=== PATIENT | female | born 1950 | race Caucasian/White ===

== ENCOUNTER 2017-08-09 12:29 | Emergency (ER) | payer BC, OTHER, MEDICARE | END 2017-08-09 14:30 | disposition home or self-care (01) | LOC: FTE 12:29 | DX: E11.628 Type 2 diabetes mellitus with other skin complications (principal); I10 Essential (primary) hypertension; I25.10 Atherosclerotic heart disease of native coronary artery without angina pectoris; R23.8 Other skin changes; E66.01 Morbid (severe) obesity due to excess calories; L97.529 Non-pressure chronic ulcer of other part of left foot with unspecified severity; Z79.82 Long term (current) use of aspirin; Z79.4 Long term (current) use of insulin | CPT/HCPCS: 10140; 99284-25 ==

== ENCOUNTER 2017-08-21 09:57 | Emergency (ER) | payer BC, OTHER ==
[2017-08-21] MEDS: ONDANSETRON 4 MG INJ IV ×2 (11:25→16:15)
[2017-08-21] MEDS: SOD CHLORIDE 0.9% 1,000 ML IV (11:25)
[2017-08-21] MEDS: morphine 4 MG/ML VIAL IV ×2 (11:25→15:57)
[2017-08-21 11:30] LABS: ADD MAN DIFF? NO
[2017-08-21 11:32] LABS: BASOPHILS % 0.3 % (0.0-2.0); HEMATOCRIT 38.2 % (37.0-47.0); HEMOGLOBIN 12.4 g/dl (12.0-16.0); LYMPHOCYTES # 2.1 10^3/ul (0.8-2.9); LYMPHOCYTES % 23.4 % (15.0-51.0); MEAN CORPUSCULAR HEMOGLOBIN 28.3 pg (29.0-33.0); MEAN CORPUSCULAR HGB CONC 32.5 g/dl (32.0-37.0); MEAN CORPUSCULAR VOLUME 87.2 fl (82.0-101.0); MEAN PLATELET VOLUME 10.9 fl (7.4-10.4); MONOCYTE # 0.5 10^3/ul (0.3-0.9); MONOCYTES % 5.7 % (0.0-11.0); NEUTROPHIL # 6.3 10^3/ul (1.6-7.5); NEUTROPHILS % 70.2 % (39.0-77.0); PLATELET COUNT 266 10^3/UL (140-415); RED BLOOD COUNT 4.38 10^6/ul (4.20-5.40); RED CELL DISTRIBUTION WIDTH 14.3 % (11.5-14.5)
[2017-08-21 11:56] LABS: INR 0.93; PROTIME 12.5 Sec (11.9-14.9)
[2017-08-21 11:58] LABS: ALANINE AMINOTRANSFERASE 29 IU/L (13-69); ALBUMIN 3.8 g/dl (3.3-4.9); ALBUMIN/GLOBULIN RATIO 1.26; ALKALINE PHOSPHATASE 119 IU/L (42-121); ANION GAP 15 (8-16); ASPARTATE AMINO TRANSFERASE 12 IU/L (15-46); BILIRUBIN,INDIRECT 0.1 mg/dl (0-1.1); BILIRUBIN,TOTAL 0.1 mg/dl (0.2-1.3); BLOOD UREA NITROGEN 19 mg/dl (7-20); CALCIUM 8.7 mg/dl (8.4-10.2); CARBON DIOXIDE 30 mmol/L (21-31); CHLORIDE 100 mmol/L (97-110); CREATININE 0.89 mg/dl (0.44-1.00); GLUCOSE 164 mg/dl (70-220); PARTIAL THROMBOPLASTIN TIME 27.2 Sec (25.0-35.0); SODIUM 140 mmol/L (135-144); TOTAL PROTEIN 6.8 g/dl (6.1-8.1)
[2017-08-21 12:02] LABS: POTASSIUM 5.2 mmol/L (3.5-5.1)
[2017-08-21 12:26] LABS: TROPONIN-I < 0.012 ng/ml (0.00-0.12)
[2017-08-21 13:27] LABS: ADD UMIC NO; UR ASCORBIC ACID NEGATIVE (NEGATIVE); UR BILIRUBIN (Dip) NEGATIVE (NEGATIVE); UR BLOOD (Dip) NEGATIVE (NEGATIVE); UR CLARITY CLEAR (CLEAR); UR COLOR YELLOW (YELLOW); UR GLUCOSE (Dip) NEGATIVE (NEGATIVE); UR KETONES (Dip) NEGATIVE (NEGATIVE); UR LEUKOCYTE ESTERASE (Dip) NEGATIVE Leu/ul (NEGATIVE); UR NITRITE (Dip) NEGATIVE (NEGATIVE); UR SPECIFIC GRAVITY (Dip) 1.014 (1.003-1.030); UR TOTAL PROTEIN (Dip) NEGATIVE (NEGATIVE); UR UROBILINOGEN (Dip) NEGATIVE (NEGATIVE)
== END 2017-08-21 18:20 | disposition home or self-care (01) ==
LOC: E/R 09:57
DX: R35.0 Frequency of micturition (principal); E11.9 Type 2 diabetes mellitus without complications; I10 Essential (primary) hypertension; I25.10 Atherosclerotic heart disease of native coronary artery without angina pectoris; R06.02 Shortness of breath; Z79.4 Long term (current) use of insulin; Z79.82 Long term (current) use of aspirin
CPT/HCPCS: 73630; 73630-LT; 80053; 81003; 84484; 85025; 85610; 85730; 87086; 93005; 96374; 96375; 96376; 99285-25

== ENCOUNTER 2017-08-24 12:17 | Emergency (ER) | payer BC, OTHER ==
[2017-08-24] MEDS: ACETAMINOPHEN 500 MG TAB PO ×2 (17:38→20:02)
[2017-08-24] MEDS: SOD CHLORIDE 0.9% 1,000 ML IV (17:40)
[2017-08-24 17:52] LABS: ADD MAN DIFF? NO
[2017-08-24] MEDS: CEFTRIAXONE 1 GM/50 ML (PMX) 50 ML IVPB (17:53)
[2017-08-24 18:01] LABS: WHITE BLOOD COUNT 14.3 10^3/ul (4.8-10.8)
[2017-08-24 18:01] LABS: BASOPHIL # 0.1 10^3/ul (0.0-0.1); BASOPHILS % 0.3 % (0.0-2.0); HEMATOCRIT 37.8 % (37.0-47.0); HEMOGLOBIN 12.2 g/dl (12.0-16.0); LYMPHOCYTES # 2.7 10^3/ul (0.8-2.9); LYMPHOCYTES % 19.2 % (15.0-51.0); MEAN CORPUSCULAR HEMOGLOBIN 28.6 pg (29.0-33.0); MEAN CORPUSCULAR HGB CONC 32.3 g/dl (32.0-37.0); MEAN CORPUSCULAR VOLUME 88.7 fl (82.0-101.0); MEAN PLATELET VOLUME 11.1 fl (7.4-10.4); MONOCYTE # 1.4 10^3/ul (0.3-0.9); MONOCYTES % 9.7 % (0.0-11.0); NEUTROPHIL # 10.1 10^3/ul (1.6-7.5); NEUTROPHILS % 70.4 % (39.0-77.0); PLATELET COUNT 248 10^3/UL (140-415); RED BLOOD COUNT 4.26 10^6/ul (4.20-5.40); RED CELL DISTRIBUTION WIDTH 14.6 % (11.5-14.5)
[2017-08-24 18:22] LABS: ALANINE AMINOTRANSFERASE 30 IU/L (13-69); ALBUMIN/GLOBULIN RATIO 1.21; ALKALINE PHOSPHATASE 125 IU/L (42-121); ANION GAP 17 (8-16); ASPARTATE AMINO TRANSFERASE 11 IU/L (15-46); BILIRUBIN,INDIRECT 0.3 mg/dl (0-1.1); BILIRUBIN,TOTAL 0.3 mg/dl (0.2-1.3); BLOOD UREA NITROGEN 18 mg/dl (7-20); CALCIUM 8.4 mg/dl (8.4-10.2); CARBON DIOXIDE 29 mmol/L (21-31); CHLORIDE 97 mmol/L (97-110); CREATININE 0.95 mg/dl (0.44-1.00); GLUCOSE 94 mg/dl (70-220); POTASSIUM 4.1 mmol/L (3.5-5.1); SODIUM 139 mmol/L (135-144); TOTAL PROTEIN 7.3 g/dl (6.1-8.1)
[2017-08-24 18:23] LABS: LACTIC ACID 1.4 mmol/L (0.5-2.0)
[2017-08-24 18:31] LABS: B-TYPE NATRIURETIC PEPTIDE 1370 PG/ML (0-125)
[2017-08-24 19:06] LABS: TROPONIN-I < 0.012 ng/ml (0.00-0.12)
[2017-08-24] MEDS: AZITHROMYCIN 500MG/NS (PMX) 250 ML IV (19:33)
[2017-08-24] MEDS: ALBUTEROL 0.083% (NEB) 2.5 MG/3 ML AMP NEB (20:02)
== END 2017-08-25 08:03 | disposition home or self-care (01) ==
LOC: E/R 08-25 08:03
DX: J40 Bronchitis, not specified as acute or chronic (principal); H10.31 Unspecified acute conjunctivitis, right eye; I10 Essential (primary) hypertension; E11.9 Type 2 diabetes mellitus without complications; I25.10 Atherosclerotic heart disease of native coronary artery without angina pectoris; Z79.01 Long term (current) use of anticoagulants; Z79.4 Long term (current) use of insulin; Z79.82 Long term (current) use of aspirin
CPT/HCPCS: 36415; 71045; 80053; 82962; 83605; 83880; 84484; 85025; 87040; 87400; 93005; 96374; 96375; 99285-25

== ENCOUNTER 2017-08-29 10:37 | Inpatient (IN) | payer BC, OTHER ==
[2017-08-29 11:17] LABS: ADD MAN DIFF? NO
[2017-08-29 11:19] LABS: BASOPHILS % 0.3 % (0.0-2.0); HEMATOCRIT 33.3 % (37.0-47.0); HEMOGLOBIN 11.1 g/dl (12.0-16.0); LYMPHOCYTES # 1.5 10^3/ul (0.8-2.9); LYMPHOCYTES % 12.7 % (15.0-51.0); MEAN CORPUSCULAR HEMOGLOBIN 29.4 pg (29.0-33.0); MEAN CORPUSCULAR HGB CONC 33.3 g/dl (32.0-37.0); MEAN CORPUSCULAR VOLUME 88.3 fl (82.0-101.0); MONOCYTES % 8.4 % (0.0-11.0); NEUTROPHIL # 9.2 10^3/ul (1.6-7.5); NEUTROPHILS % 77.9 % (39.0-77.0); PLATELET COUNT 221 10^3/UL (140-415); RED BLOOD COUNT 3.77 10^6/ul (4.20-5.40); RED CELL DISTRIBUTION WIDTH 14.1 % (11.5-14.5)
[2017-08-29 11:19] LABS: WHITE BLOOD COUNT 11.8 10^3/ul (4.8-10.8)
[2017-08-29] MEDS: IPRATROPIUM (NEB) 0.5 MG/2.5 ML AMP INH (11:23)
[2017-08-29] MEDS: ALBUTEROL 0.5% (NEB) 2.5 MG/0.5 ML AMP INH (11:23)
[2017-08-29 11:44] LABS: ANION GAP 11 (8-16); BLOOD UREA NITROGEN 16 mg/dl (7-20); CALCIUM 8.1 mg/dl (8.4-10.2); CARBON DIOXIDE 29 mmol/L (21-31); CHLORIDE 102 mmol/L (97-110); CREATININE 0.66 mg/dl (0.44-1.00); GLUCOSE 157 mg/dl (70-220); POTASSIUM 3.6 mmol/L (3.5-5.1); SODIUM 138 mmol/L (135-144)
[2017-08-29 11:56] LABS: TROPONIN-I < 0.012 ng/ml (0.00-0.12)
[2017-08-29 13:02] LABS: B-TYPE NATRIURETIC PEPTIDE 1620 PG/ML (0-125)
[2017-08-29] MEDS: FUROSEMIDE 20 MG INJ IV (15:19)
[2017-08-29] MEDS ORDERED: ACETAMINOPHEN 325 MG TAB PO (16:00)
[2017-08-29] MEDS ORDERED: ONDANSETRON 4 MG INJ IV (16:00)
[2017-08-29] MEDS ORDERED: BISACODYL (EC) 5 MG TAB PO (18:30)
[2017-08-29] MEDS ORDERED: ALBUTEROL HFA 8 GM INHALER INH (18:30)
[2017-08-29] MEDS ORDERED: ACETAMINOPHEN 650 MG SUPP PR (18:30)
[2017-08-29] MEDS ORDERED: NA PHOSPHATE/BIPHOS 133 ML ENEMA PR (18:30)
[2017-08-29] MEDS ORDERED: NACL 0.9% 3 ML SYG IV (18:30)
[2017-08-29] MEDS ORDERED: DOCUSATE SODIUM 100 MG CAP PO (18:30)
[2017-08-29 20:15] LABS: CREATINE KINASE 39 IU/L (23-200)
[2017-08-29 20:29] LABS: CK INDEX 1.3
[2017-08-29 20:31] LABS: TROPONIN-I < 0.012 ng/ml (0.00-0.12)
[2017-08-29] MEDS: ATORVASTATIN 40 MG TAB PO (21:53)
[2017-08-29] MEDS: AMITRIPTYLINE 25 MG TAB PO (21:54)
[2017-08-29] MEDS: INSULIN GLARGINE [LANtus] 3 ML PEN SC (21:55)
[2017-08-29] MEDS ORDERED: GLUCOSE GEL 15 GRAM TUBE PO ×2 (23:00)
[2017-08-29] MEDS ORDERED: GLUCOSE GEL 15 GRAM TUBE BUCCAL (23:00)
[2017-08-29] MEDS ORDERED: GLUCAGON 1 MG INJ IM (23:00)
[2017-08-29] MEDS ORDERED: DEXTROSE 50% 50 ML SYRINGE IV ×2 (23:00)
[2017-08-29] MEDS: PREGABALIN 75 MG CAP PO (23:26)
[2017-08-30] MEDS: ACCU-CHEK XX (02:04)
[2017-08-30 03:40] LABS: CREATINE KINASE 31 IU/L (23-200)
[2017-08-30 03:51] LABS: CK INDEX 1.3; CK-MB 0.39 ng/ml (0.0-2.4)
[2017-08-30 04:15] LABS: TROPONIN-I < 0.012 ng/ml (0.00-0.12)
[2017-08-30] MEDS: PANTOPRAZOLE 40 MG INJ IV (05:55)
[2017-08-30] MEDS: BENAZEPRIL 20 MG TAB PO (09:00)
[2017-08-30] MEDS: ENOXAPARIN 40 MG/0.4 ML SYG SC (09:00)
[2017-08-30] MEDS: FLUTICASONE 0.05% 16 GM NAS SPRAY NASAL (09:00)
[2017-08-30] MEDS: PREGABALIN 75 MG CAP PO ×3 (09:00→21:23)
[2017-08-30] MEDS: SOLIFENACIN 5 MG TAB PO ×2 (09:00)
[2017-08-30] MEDS: INSULIN ASPART [NOVOLOG] 3 ML PEN SC ×4 (12:00→21:27)
[2017-08-30] MEDS: morphine 2 MG INJ IV ×2 (12:05→21:50)
[2017-08-30] MEDS: ONDANSETRON 4 MG INJ IV (12:05)
[2017-08-30] MEDS: ASPIRIN 81 MG TAB PO (12:06)
[2017-08-30] MEDS: FUROSEMIDE 40 MG INJ IV (12:06)
[2017-08-30] MEDS: INSULIN GLARGINE [LANtus] 3 ML PEN SC ×2 (14:00→21:26)
[2017-08-30] MEDS: IBUPROFEN 800 MG TAB PO (16:40)
[2017-08-30] MEDS: CEFTRIAXONE 1 GM/50 ML (PMX) 50 ML IVPB (21:23)
[2017-08-30] MEDS: ATORVASTATIN 40 MG TAB PO (21:23)
[2017-08-30] MEDS: AMITRIPTYLINE 25 MG TAB PO (21:49)
[2017-08-31] MEDS: ACCU-CHEK XX (02:34)
[2017-08-31] MEDS: PANTOPRAZOLE 40 MG INJ IV (05:31)
[2017-08-31 05:39] LABS: ADD MAN DIFF? NO
[2017-08-31 05:42] LABS: WHITE BLOOD COUNT 10.9 10^3/ul (4.8-10.8)
[2017-08-31 05:42] LABS: BASOPHIL # 0.1 10^3/ul (0.0-0.1); BASOPHILS % 0.5 % (0.0-2.0); HEMATOCRIT 33.8 % (37.0-47.0); HEMOGLOBIN 12.1 g/dl (12.0-16.0); LYMPHOCYTES # 3.7 10^3/ul (0.8-2.9); LYMPHOCYTES % 34.2 % (15.0-51.0); MEAN CORPUSCULAR HEMOGLOBIN 34.4 pg (29.0-33.0); MEAN CORPUSCULAR HGB CONC 35.8 g/dl (32.0-37.0); MEAN PLATELET VOLUME 10.5 fl (7.4-10.4); MONOCYTES % 9.3 % (0.0-11.0); NEUTROPHILS % 55.1 % (39.0-77.0); PLATELET COUNT 262 10^3/UL (140-415); RED BLOOD COUNT 3.52 10^6/ul (4.20-5.40); RED CELL DISTRIBUTION WIDTH 17.3 % (11.5-14.5)
[2017-08-31 06:05] LABS: ALANINE AMINOTRANSFERASE 42 IU/L (13-69); ALBUMIN 3.1 g/dl (3.3-4.9); ALBUMIN/GLOBULIN RATIO 1.06; ALKALINE PHOSPHATASE 87 IU/L (42-121); ANION GAP 11 (8-16); ASPARTATE AMINO TRANSFERASE 17 IU/L (15-46); BILIRUBIN,INDIRECT 0.3 mg/dl (0-1.1); BILIRUBIN,TOTAL 0.3 mg/dl (0.2-1.3); BLOOD UREA NITROGEN 26 mg/dl (7-20); CALCIUM 8.5 mg/dl (8.4-10.2); CARBON DIOXIDE 37 mmol/L (21-31); CHLORIDE 97 mmol/L (97-110); CREATININE 1.07 mg/dl (0.44-1.00); GLUCOSE 80 mg/dl (70-220); POTASSIUM 3.7 mmol/L (3.5-5.1); SODIUM 141 mmol/L (135-144)
[2017-08-31] MEDS: INSULIN ASPART [NOVOLOG] 3 ML PEN SC ×4 (09:16→21:00)
[2017-08-31] MEDS: ASPIRIN 81 MG TAB PO (09:28)
[2017-08-31] MEDS: FUROSEMIDE 40 MG INJ IV (09:28)
[2017-08-31] MEDS: SOLIFENACIN 5 MG TAB PO (09:31)
[2017-08-31] MEDS: PREGABALIN 75 MG CAP PO ×3 (09:34→21:21)
[2017-08-31] MEDS: FLUTICASONE 0.05% 16 GM NAS SPRAY NASAL (09:34)
[2017-08-31] MEDS: ENOXAPARIN 40 MG/0.4 ML SYG SC (09:47)
[2017-08-31] MEDS: REGADENOSON 0.4 MG/5 ML SYG (11:52)
[2017-08-31] MEDS: BENAZEPRIL 20 MG TAB PO (13:16)
[2017-08-31] MEDS: INSULIN GLARGINE [LANtus] 3 ML PEN SC ×2 (13:23→20:40)
[2017-08-31] MEDS: ACETAMINOPHEN 325 MG TAB PO (14:16)
[2017-08-31] MEDS: HYDROCODONE/APAP (10/325) TAB PO (14:44)
[2017-08-31] MEDS: SOD CHLORIDE 0.9% 250 ML IV (15:54)
[2017-08-31] MEDS: ONDANSETRON 4 MG INJ IV (20:25)
[2017-08-31] MEDS: morphine 2 MG INJ IV (20:29)
[2017-08-31] MEDS: CEFTRIAXONE 1 GM/50 ML (PMX) 50 ML IVPB (21:19)
[2017-08-31] MEDS: ATORVASTATIN 40 MG TAB PO (21:20)
[2017-08-31] MEDS: AMITRIPTYLINE 25 MG TAB PO (21:20)
[2017-09-01] MEDS: ACCU-CHEK XX (01:56)
[2017-09-01] MEDS: PANTOPRAZOLE 40 MG INJ IV (05:57)
[2017-09-01] MEDS: FUROSEMIDE 20 MG INJ IV (05:58)
[2017-09-01] MEDS: morphine 2 MG INJ IV ×2 (07:49→23:19)
[2017-09-01] MEDS: INSULIN ASPART [NOVOLOG] 3 ML PEN SC ×4 (07:51→21:03)
[2017-09-01] MEDS: PREGABALIN 75 MG CAP PO ×3 (09:39→20:56)
[2017-09-01] MEDS: SOLIFENACIN 5 MG TAB PO (09:39)
[2017-09-01] MEDS: ASPIRIN 81 MG TAB PO (09:40)
[2017-09-01] MEDS: BENAZEPRIL 10 MG TAB PO (09:43)
[2017-09-01] MEDS: ENOXAPARIN 40 MG/0.4 ML SYG SC (09:45)
[2017-09-01] MEDS: INSULIN GLARGINE [LANtus] 3 ML PEN SC ×2 (09:46→20:59)
[2017-09-01] MEDS: FLUTICASONE 0.05% 16 GM NAS SPRAY NASAL (09:55)
[2017-09-01] MEDS: HYDROCODONE/APAP (10/325) TAB PO (17:45)
[2017-09-01] MEDS: CEFTRIAXONE 1 GM/50 ML (PMX) 50 ML IVPB (20:55)
[2017-09-01] MEDS: ATORVASTATIN 40 MG TAB PO (20:56)
[2017-09-01] MEDS: AMITRIPTYLINE 25 MG TAB PO (20:56)
[2017-09-01] MEDS: ONDANSETRON 4 MG INJ IV (23:19)
[2017-09-02] MEDS: ZOLPIDEM 5 MG TAB PO (01:01)
[2017-09-02] MEDS: ACCU-CHEK XX (01:38)
[2017-09-02] MEDS: FUROSEMIDE 20 MG INJ IV (05:50)
[2017-09-02] MEDS: PANTOPRAZOLE 40 MG INJ IV (05:50)
[2017-09-02 05:58] LABS: ADD MAN DIFF? NO
[2017-09-02 06:06] LABS: BASOPHILS % 0.3 % (0.0-2.0); HEMOGLOBIN 10.9 g/dl (12.0-16.0); LYMPHOCYTES # 2.9 10^3/ul (0.8-2.9); LYMPHOCYTES % 36.1 % (15.0-51.0); MEAN CORPUSCULAR VOLUME 98.1 fl (82.0-101.0); MEAN PLATELET VOLUME 10.6 fl (7.4-10.4); MONOCYTE # 0.6 10^3/ul (0.3-0.9); MONOCYTES % 7.4 % (0.0-11.0); NEUTROPHIL # 4.4 10^3/ul (1.6-7.5); NEUTROPHILS % 55.6 % (39.0-77.0); PLATELET COUNT 252 10^3/UL (140-415)
[2017-09-02 06:46] LABS: ALANINE AMINOTRANSFERASE 33 IU/L (13-69); ALBUMIN 2.9 g/dl (3.3-4.9); ALBUMIN/GLOBULIN RATIO 0.96; ALKALINE PHOSPHATASE 76 IU/L (42-121); ANION GAP 9 (8-16); ASPARTATE AMINO TRANSFERASE 12 IU/L (15-46); BILIRUBIN,INDIRECT 0.4 mg/dl (0-1.1); BILIRUBIN,TOTAL 0.4 mg/dl (0.2-1.3); BLOOD UREA NITROGEN 23 mg/dl (7-20); CALCIUM 8.2 mg/dl (8.4-10.2); CARBON DIOXIDE 33 mmol/L (21-31); CHLORIDE 98 mmol/L (97-110); CREATININE 0.79 mg/dl (0.44-1.00); GLUCOSE 152 mg/dl (70-220); POTASSIUM 4.4 mmol/L (3.5-5.1); SODIUM 136 mmol/L (135-144); TOTAL PROTEIN 5.9 g/dl (6.1-8.1)
[2017-09-02 06:59] LABS: HEMATOCRIT 25.8 % (37.0-47.0); MEAN CORPUSCULAR HEMOGLOBIN 41.4 pg (29.0-33.0); MEAN CORPUSCULAR HGB CONC 42.2 g/dl (32.0-37.0); POSITIVE DIFF @See below; RED BLOOD COUNT 2.63 10^6/ul (4.20-5.40)
[2017-09-02] MEDS: INSULIN ASPART [NOVOLOG] 3 ML PEN SC ×3 (08:14→17:00)
[2017-09-02] MEDS: SOLIFENACIN 5 MG TAB PO (08:56)
[2017-09-02] MEDS: PREGABALIN 75 MG CAP PO ×3 (08:56→21:38)
[2017-09-02] MEDS: ASPIRIN 81 MG TAB PO (08:56)
[2017-09-02] MEDS: BENAZEPRIL 10 MG TAB PO (08:57)
[2017-09-02] MEDS: FLUTICASONE 0.05% 16 GM NAS SPRAY NASAL (08:58)
[2017-09-02] MEDS: ENOXAPARIN 40 MG/0.4 ML SYG SC (08:59)
[2017-09-02] MEDS: INSULIN GLARGINE [LANtus] 3 ML PEN SC ×2 (09:00→21:50)
[2017-09-02] MEDS: morphine 2 MG INJ IV ×2 (09:59→19:37)
[2017-09-02] MEDS: LINAGLIPTIN 5 MG TABLET PO (14:27)
[2017-09-02] MEDS: Insulin NOVOLOG SS MILD Algorithm (SS with meals and bedtime) SC ×2 (17:02→21:48)
[2017-09-02] MEDS ORDERED: INSULIN ASPART [NOVOLOG] 3 ML PEN SC (17:35)
[2017-09-02] MEDS: AMITRIPTYLINE 25 MG TAB PO (21:38)
[2017-09-02] MEDS: ATORVASTATIN 40 MG TAB PO (21:38)
[2017-09-02] MEDS: CEFTRIAXONE 1 GM/50 ML (PMX) 50 ML IVPB (21:39)
[2017-09-03] MEDS: ACCU-CHEK XX (02:28)
[2017-09-03] MEDS: FUROSEMIDE 20 MG INJ IV (05:51)
[2017-09-03] MEDS: PANTOPRAZOLE (EC) 40 MG TAB PO (05:51)
[2017-09-03 06:13] LABS: ADD MAN DIFF? NO
[2017-09-03 06:40] LABS: ANION GAP 9 (8-16); BLOOD UREA NITROGEN 18 mg/dl (7-20); CALCIUM 8.4 mg/dl (8.4-10.2); CARBON DIOXIDE 35 mmol/L (21-31); CHLORIDE 97 mmol/L (97-110); CREATININE 0.97 mg/dl (0.44-1.00); GLUCOSE 135 mg/dl (70-220); POTASSIUM 4.1 mmol/L (3.5-5.1); SODIUM 137 mmol/L (135-144)
[2017-09-03 07:13] LABS: BASOPHILS % 0.3 % (0.0-2.0); HEMATOCRIT 34.8 % (37.0-47.0); HEMOGLOBIN 11.4 g/dl (12.0-16.0); LYMPHOCYTES # 2.7 10^3/ul (0.8-2.9); LYMPHOCYTES % 28.3 % (15.0-51.0); MEAN CORPUSCULAR HEMOGLOBIN 29.7 pg (29.0-33.0); MEAN CORPUSCULAR HGB CONC 32.8 g/dl (32.0-37.0); MEAN CORPUSCULAR VOLUME 90.6 fl (82.0-101.0); MEAN PLATELET VOLUME 10.4 fl (7.4-10.4); MONOCYTE # 0.7 10^3/ul (0.3-0.9); MONOCYTES % 7.6 % (0.0-11.0); NEUTROPHILS % 63.2 % (39.0-77.0); PLATELET COUNT 248 10^3/UL (140-415); RED BLOOD COUNT 3.84 10^6/ul (4.20-5.40); RED CELL DISTRIBUTION WIDTH 14.6 % (11.5-14.5)
[2017-09-03 07:13] LABS: WHITE BLOOD COUNT 9.5 10^3/ul (4.8-10.8)
[2017-09-03 07:51] LABS: HEMOGLOBIN A1C 7.3 % (0-5.9)
[2017-09-03] MEDS: INSULIN ASPART [NOVOLOG] 3 ML PEN SC ×2 (07:59→12:38)
[2017-09-03] MEDS: Insulin NOVOLOG SS MILD Algorithm (SS with meals and bedtime) SC ×2 (08:01→12:41)
[2017-09-03] MEDS: FLUTICASONE 0.05% 16 GM NAS SPRAY NASAL (09:00)
[2017-09-03] MEDS: HYDROCODONE/APAP (10/325) TAB PO (10:04)
[2017-09-03] MEDS: BENAZEPRIL 10 MG TAB PO (10:05)
[2017-09-03] MEDS: SOLIFENACIN 5 MG TAB PO (10:07)
[2017-09-03] MEDS: LINAGLIPTIN 5 MG TABLET PO (10:08)
[2017-09-03] MEDS: ASPIRIN 81 MG TAB PO (10:08)
[2017-09-03] MEDS: PREGABALIN 75 MG CAP PO (10:08)
[2017-09-03] MEDS: ENOXAPARIN 40 MG/0.4 ML SYG SC (10:13)
[2017-09-03] MEDS: MAGNESIUM HYDROXIDE 30ML CUP PO (12:41)
[2017-09-03] MEDS: morphine 2 MG INJ IV (12:42)
== END 2017-09-03 16:54 | disposition home or self-care (01) | DRG 293 ==
LOC: E/R 10:37 → MS3 15:53
DX: I11.0 Hypertensive heart disease with heart failure (principal); I10 Essential (primary) hypertension; I25.2 Old myocardial infarction; E11.9 Type 2 diabetes mellitus without complications; D64.9 Anemia, unspecified; I50.33 Acute on chronic diastolic (congestive) heart failure; I25.10 Atherosclerotic heart disease of native coronary artery without angina pectoris; J06.9 Acute upper respiratory infection, unspecified; R07.9 Chest pain, unspecified
CPT/HCPCS: 36415; 71045; 78452; 80048; 80053; 82550; 82553; 82962; 83036; 83880; 84484; 85025; 93005; 93017; 93306; 94644; 96372; 96374; 96375; 96376; 99217; 99285-25; J1940

== ENCOUNTER 2017-11-20 15:34 | Emergency (ER) | payer MEDICARE, OTHER ==
[2017-11-20] MEDS: IPRATROPIUM (NEB) 0.5 MG/2.5 ML AMP HHN (16:43)
[2017-11-20] MEDS: ALBUTEROL 0.083% (NEB) 2.5 MG/3 ML AMP HHN (16:43)
[2017-11-20] MEDS: FUROSEMIDE 20 MG INJ IV (16:48)
[2017-11-20] MEDS: morphine 4 MG/ML VIAL IV (16:48)
[2017-11-20 17:19] LABS: ADD UMIC NO; UR ASCORBIC ACID 40 mg/dL (NEGATIVE); UR BILIRUBIN (Dip) NEGATIVE (NEGATIVE); UR BLOOD (Dip) NEGATIVE (NEGATIVE); UR CLARITY CLEAR (CLEAR); UR COLOR YELLOW (YELLOW); UR GLUCOSE (Dip) NEGATIVE (NEGATIVE); UR KETONES (Dip) NEGATIVE (NEGATIVE); UR LEUKOCYTE ESTERASE (Dip) NEGATIVE Leu/ul (NEGATIVE); UR NITRITE (Dip) NEGATIVE (NEGATIVE); UR TOTAL PROTEIN (Dip) NEGATIVE (NEGATIVE); UR UROBILINOGEN (Dip) NEGATIVE (NEGATIVE)
[2017-11-20] MEDS: HYDROmorphONE 0.5 MG/0.5 ML SYG IV ×2 (17:23→19:26)
[2017-11-20] MEDS: HYDROmorphONE 2 MG/ML SYG IV (22:41)
== END 2017-11-20 23:00 | disposition home or self-care (01) ==
LOC: E/R 23:00 → FTE 15:34
DX: M54.31 Sciatica, right side (principal); Z79.4 Long term (current) use of insulin; Z79.82 Long term (current) use of aspirin
CPT/HCPCS: 73510; 73700; 81003; 82962; 94664; 96374; 96375; 96376; 99285-25

== ENCOUNTER 2018-12-05 16:36 | Emergency (ER) | payer MEDICARE, OTHER ==
[2018-12-05] MEDS: ONDANSETRON (ODT) 4 MG TAB ODT (17:12)
[2018-12-05] MEDS: HYDROmorphONE 0.5 MG/0.5 ML SYG IM (17:13)
== END 2018-12-05 22:10 | disposition home or self-care (01) ==
LOC: E/R 16:36
DX: M54.31 Sciatica, right side (principal); I10 Essential (primary) hypertension; E11.9 Type 2 diabetes mellitus without complications; Z79.4 Long term (current) use of insulin; Z79.82 Long term (current) use of aspirin
CPT/HCPCS: 96372; 99284-25

== ENCOUNTER 2019-02-03 11:20 | Observation (INO) | payer MEDICARE, OTHER ==
[2019-02-03 16:06] LABS: ADD MAN DIFF? NO
[2019-02-03 16:11] LABS: WHITE BLOOD COUNT 9.9 10^3/ul (4.8-10.8)
[2019-02-03 16:11] LABS: BASOPHILS % 0.3 % (0.0-2.0); HEMATOCRIT 37.6 % (37.0-47.0); HEMOGLOBIN 12.3 g/dl (12.0-16.0); LYMPHOCYTES # 2.7 10^3/ul (0.8-2.9); LYMPHOCYTES % 27.1 % (15.0-51.0); MEAN CORPUSCULAR HEMOGLOBIN 28.5 pg (29.0-33.0); MEAN CORPUSCULAR HGB CONC 32.7 g/dl (32.0-37.0); MEAN PLATELET VOLUME 11.3 fl (7.4-10.4); MONOCYTE # 0.8 10^3/ul (0.3-0.9); MONOCYTES % 8.1 % (0.0-11.0); NEUTROPHIL # 6.4 10^3/ul (1.6-7.5); NEUTROPHILS % 64.1 % (39.0-77.0); PLATELET COUNT 245 10^3/UL (140-415); RED BLOOD COUNT 4.32 10^6/ul (4.20-5.40); RED CELL DISTRIBUTION WIDTH 13.6 % (11.5-14.5)
[2019-02-03 16:28] LABS: ANION GAP 7 (5-13); BLOOD UREA NITROGEN 18 mg/dl (7-20); CALCIUM 8.6 mg/dl (8.4-10.2); CARBON DIOXIDE 30 mmol/L (21-31); CHLORIDE 101 mmol/L (97-110); CREATININE 0.71 mg/dl (0.44-1.00); Estimated GFR > 60 mL/min (>60); GLUCOSE 206 mg/dl (70-220); POTASSIUM 4.3 mmol/L (3.5-5.1); SODIUM 138 mmol/L (135-144)
[2019-02-03] MEDS: PIPER-TAZO 3.375 GM IV (PMX) 100 ML IVPB (18:04)
[2019-02-03] MEDS ORDERED: ONDANSETRON 4 MG INJ IV (19:00)
[2019-02-03] MEDS ORDERED: ACETAMINOPHEN 325 MG TAB PO (19:00)
[2019-02-03] MEDS ORDERED: NACL 0.9% 3 ML SYG IV (19:00)
[2019-02-03] MEDS ORDERED: PREGABALIN 100 MG CAP PO (19:30)
[2019-02-03] MEDS ORDERED: DEXTROSE 50% 50 ML SYRINGE IV ×2 (20:30)
[2019-02-03] MEDS ORDERED: GLUCAGON 1 MG INJ IM (20:30)
[2019-02-03] MEDS ORDERED: GLUCOSE GEL 15 GRAM TUBE PO ×2 (20:30)
[2019-02-03] MEDS ORDERED: GLUCOSE GEL 15 GRAM TUBE BUCCAL (20:30)
[2019-02-03] MEDS: AMITRIPTYLINE 50 MG TAB PO (21:32)
[2019-02-03] MEDS: ATORVASTATIN 20 MG TAB PO (21:32)
[2019-02-03] MEDS: PREGABALIN 75 MG CAP PO (21:32)
[2019-02-03] MEDS: HEPARIN 5,000 UNIT/1 ML VIAL SC (21:34)
[2019-02-03] MEDS: INSULIN ASPART [NOVOLOG] 3 ML PEN SC (21:35)
[2019-02-03] MEDS: INSULIN GLARGINE [LANTus] (100 UNITS/ML) SYG SC (21:36)
[2019-02-04] MEDS: PIPER-TAZO 3.375 GM IV (PMX) 100 ML IVPB ×3 (00:05→12:57)
[2019-02-04] MEDS: ACCU-CHEK XX (01:56)
[2019-02-04] MEDS ORDERED: PENDING SANTYL ORDER FOR WOUND CARE XX (04:00)
[2019-02-04] MEDS ORDERED: COLLAGENASE 5 GM (UD JAR) TOP (04:30)
[2019-02-04 05:40] LABS: ADD MAN DIFF? NO
[2019-02-04 05:48] LABS: WHITE BLOOD COUNT 8.3 10^3/ul (4.8-10.8)
[2019-02-04 05:48] LABS: BASOPHILS % 0.2 % (0.0-2.0); HEMATOCRIT 37.1 % (37.0-47.0); HEMOGLOBIN 12.2 g/dl (12.0-16.0); LYMPHOCYTES # 1.7 10^3/ul (0.8-2.9); LYMPHOCYTES % 20.4 % (15.0-51.0); MEAN CORPUSCULAR HEMOGLOBIN 28.5 pg (29.0-33.0); MEAN CORPUSCULAR HGB CONC 32.9 g/dl (32.0-37.0); MEAN CORPUSCULAR VOLUME 86.7 fl (82.0-101.0); MEAN PLATELET VOLUME 11.2 fl (7.4-10.4); MONOCYTE # 0.8 10^3/ul (0.3-0.9); MONOCYTES % 9.7 % (0.0-11.0); NEUTROPHIL # 5.7 10^3/ul (1.6-7.5); NEUTROPHILS % 69.2 % (39.0-77.0); PLATELET COUNT 226 10^3/UL (140-415); RED BLOOD COUNT 4.28 10^6/ul (4.20-5.40)
[2019-02-04] MEDS: DIPHENHYDRAMINE 50 MG INJ IV (05:53)
[2019-02-04] MEDS: HEPARIN 5,000 UNIT/1 ML VIAL SC ×2 (05:55→13:04)
[2019-02-04 06:14] LABS: ALANINE AMINOTRANSFERASE 35 IU/L (13-69); ALBUMIN 3.3 g/dl (3.3-4.9); ALBUMIN/GLOBULIN RATIO 1.13; ALKALINE PHOSPHATASE 110 IU/L (42-121); ANION GAP 7 (5-13); ASPARTATE AMINO TRANSFERASE 18 IU/L (15-46); BILIRUBIN,INDIRECT 0.4 mg/dl (0-1.1); BILIRUBIN,TOTAL 0.4 mg/dl (0.2-1.3); BLOOD UREA NITROGEN 16 mg/dl (7-20); CALCIUM 8.6 mg/dl (8.4-10.2); CARBON DIOXIDE 32 mmol/L (21-31); CHLORIDE 101 mmol/L (97-110); CREATININE 0.76 mg/dl (0.44-1.00); Estimated GFR > 60 mL/min (>60); GLUCOSE 186 mg/dl (70-220); MAGNESIUM 1.8 mg/dl (1.7-2.5); PHOSPHORUS 4.7 mg/dl (2.5-4.9); POTASSIUM 4.1 mmol/L (3.5-5.1); SODIUM 140 mmol/L (135-144); TOTAL PROTEIN 6.2 g/dl (6.1-8.1)
[2019-02-04 08:19] LABS: HEMOGLOBIN A1C 8.3 % (0-5.9)
[2019-02-04] MEDS: INSULIN ASPART [NOVOLOG] 3 ML PEN SC ×4 (08:41→13:00)
[2019-02-04] MEDS: CHOLECALCIFEROL 1,000 UNIT TAB PO (08:44)
[2019-02-04] MEDS: DULOXETINE 30 MG CAP DR PO (08:44)
[2019-02-04] MEDS: PREGABALIN 75 MG CAP PO (08:45)
[2019-02-04] MEDS: SOLIFENACIN 5 MG TAB PO (08:45)
[2019-02-04] MEDS: ASPIRIN (EC) 81 MG TAB PO (08:45)
[2019-02-04] MEDS: AMLODIPINE 10 MG TAB PO (08:45)
[2019-02-04] MEDS: COLLAGENASE 5 GM (UD JAR) TOP (08:46)
[2019-02-04] MEDS: BENAZEPRIL 20 MG TAB PO (08:46)
[2019-02-04] MEDS: HYDROCODONE/APAP (5/325) TAB PO (09:59)
== END 2019-02-04 14:10 | disposition home or self-care (01) ==
LOC: E/R 11:20 → 2NE 18:49
DX: L03.116 Cellulitis of left lower limb (principal); E66.01 Morbid (severe) obesity due to excess calories; Z68.41 Body mass index [BMI] 40.0-44.9, adult; E11.9 Type 2 diabetes mellitus without complications; I10 Essential (primary) hypertension; E78.5 Hyperlipidemia, unspecified; Z79.4 Long term (current) use of insulin
CPT/HCPCS: 73630; 73630-LT; 80048; 80053; 82962; 83036; 83735; 84100; 84443; 85025; 87040-91; 93971; 96374; 99285-25

== ENCOUNTER 2019-03-02 18:23 | Inpatient (IN) | payer MEDICARE, OTHER ==
[2019-03-02 18:43] LABS: WHITE BLOOD COUNT 10.8 10^3/ul (4.8-10.8)
[2019-03-02 18:43] LABS: ADD MAN DIFF? NO; BASOPHILS % 0.3 % (0.0-2.0); HEMATOCRIT 36.6 % (37.0-47.0); HEMOGLOBIN 11.8 g/dl (12.0-16.0); LYMPHOCYTES # 1.2 10^3/ul (0.8-2.9); LYMPHOCYTES % 11.4 % (15.0-51.0); MEAN CORPUSCULAR HGB CONC 32.2 g/dl (32.0-37.0); MEAN CORPUSCULAR VOLUME 89.9 fl (82.0-101.0); MEAN PLATELET VOLUME 11.1 fl (7.4-10.4); MONOCYTE # 0.4 10^3/ul (0.3-0.9); MONOCYTES % 3.5 % (0.0-11.0); NEUTROPHIL # 9.1 10^3/ul (1.6-7.5); NEUTROPHILS % 84.2 % (39.0-77.0); PLATELET COUNT 197 10^3/UL (140-415); RED BLOOD COUNT 4.07 10^6/ul (4.20-5.40); RED CELL DISTRIBUTION WIDTH 14.1 % (11.5-14.5)
[2019-03-02] MEDS: CEFEPIME 1GM/50 ML (PMX) 50 ML IVPB (18:53)
[2019-03-02] MEDS: KETOROLAC 15 MG INJ IV (18:54)
[2019-03-02] MEDS: ACETAMINOPHEN 325 MG TAB PO (18:54)
[2019-03-02] MEDS: SOD CHLORIDE 0.9% 1,000 ML IV ×2 (18:54→19:44)
[2019-03-02 19:00] LABS: ALANINE AMINOTRANSFERASE 18 IU/L (13-69); ALBUMIN 3.7 g/dl (3.3-4.9); ALBUMIN/GLOBULIN RATIO 1.02; ALKALINE PHOSPHATASE 128 IU/L (42-121); ANION GAP 9 (5-13); ASPARTATE AMINO TRANSFERASE 12 IU/L (15-46); BILIRUBIN,INDIRECT 0.4 mg/dl (0-1.1); BILIRUBIN,TOTAL 0.4 mg/dl (0.2-1.3); BLOOD UREA NITROGEN 18 mg/dl (7-20); CALCIUM 8.4 mg/dl (8.4-10.2); CARBON DIOXIDE 28 mmol/L (21-31); CHLORIDE 98 mmol/L (97-110); CREATININE 0.84 mg/dl (0.44-1.00); Estimated GFR > 60 mL/min (>60); POTASSIUM 4.1 mmol/L (3.5-5.1); SODIUM 135 mmol/L (135-144); TOTAL PROTEIN 7.3 g/dl (6.1-8.1)
[2019-03-02 19:02] LABS: INR 0.94; PROTIME 12.7 Sec (11.9-14.9)
[2019-03-02 19:03] LABS: PARTIAL THROMBOPLASTIN TIME 29.3 Sec (23.0-35.0)
[2019-03-02 19:06] LABS: GLUCOSE 408 mg/dl (70-220)
[2019-03-02] MEDS: METHYLPREDNISOLONE 125 MG INJ IV (19:07)
[2019-03-02 19:11] LABS: TROPONIN-I < 0.012 ng/ml (0.000-0.120)
[2019-03-02] MEDS: IPRATROPIUM (NEB) 0.5 MG/2.5 ML AMP INH (19:31)
[2019-03-02] MEDS: ALBUTEROL 0.5% (NEB) 2.5 MG/0.5 ML AMP INH (19:31)
[2019-03-02 19:35] LABS: AADO2 Arterial 198.6 mmHg (7.0-24.0); Allen Test ACCEPTAB; Arterial Blood Gas Oxygen Sat 99.7 mmHG (95.0-98.0); Arterial COHb 0.3 % (0.0-3.0); Arterial Fraction of Oxyhgb 98.9 % (93.0-99.0); Arterial HCO3 22.4 mmol/L (22.0-26.0); Arterial MetHb 0.5 % (0.0-1.5); Arterial pCO2 37.3 mmhg (35-45); Blood Gas IEPAP 15/5; MODE MASK - BIPAP; Site Right Radial
[2019-03-02] MEDS: VANCOMYCIN 1 GM (PMX) 250 ML IVPB (19:36)
[2019-03-02] MEDS ORDERED: ONDANSETRON 4 MG INJ IV (20:00)
[2019-03-02] MEDS ORDERED: ACETAMINOPHEN 325 MG TAB PO (20:00)
[2019-03-02 21:13] LABS: LACTIC ACID 2.6 mmol/L (0.5-2.0)
[2019-03-02] MEDS: PREGABALIN 100 MG CAP PO (23:34)
[2019-03-02 23:40] LABS: LACTIC ACID 1.9 mmol/L (0.5-2.0)
[2019-03-02] MEDS: INSULIN GLARGINE [LANTus] (100 UNITS/ML) SYG SC (23:42)
[2019-03-03] MEDS: INSULIN ASPART [NOVOLOG] 3 ML PEN SC ×11 (00:14→22:42)
[2019-03-03] MEDS ORDERED: ALBUTEROL/IPRATROPIUM (NEB) 3 ML AMP HHN (02:00)
[2019-03-03] MEDS: ACCU-CHEK XX ×3 (02:00→04:49)
[2019-03-03] MEDS ORDERED: INSULIN LISPRO 100 UNIT/ML VIAL SC (05:00)
[2019-03-03] MEDS ORDERED: VANCOMYCIN IV PER PHARMACY XX (05:00)
[2019-03-03] MEDS: ALBUTEROL/IPRATROPIUM (NEB) 3 ML AMP HHN ×5 (05:00→20:21)
[2019-03-03] MEDS: SOD CHLORIDE 0.9% 500 ML IV (05:23)
[2019-03-03] MEDS: IOHEXOL 350MG/ML 50 ML BTL (05:58)
[2019-03-03] MEDS: SOD CHLORIDE 0.9% 100 ML (05:59)
[2019-03-03] MEDS: IOHEXOL 100 ML (05:59)
[2019-03-03] MEDS: PREGABALIN 100 MG CAP PO (06:08)
[2019-03-03] MEDS: PIPER-TAZO 3.375 GM IV (PMX) 100 ML IVPB ×3 (06:19→17:53)
[2019-03-03 06:25] LABS: ADD MAN DIFF? NO
[2019-03-03 06:41] LABS: WHITE BLOOD COUNT 13.6 10^3/ul (4.8-10.8)
[2019-03-03 06:41] LABS: BASOPHILS % 0.1 % (0.0-2.0); HEMOGLOBIN 11.2 g/dl (12.0-16.0); LYMPHOCYTES # 0.7 10^3/ul (0.8-2.9); LYMPHOCYTES % 5.4 % (15.0-51.0); MEAN CORPUSCULAR HEMOGLOBIN 28.4 pg (29.0-33.0); MEAN CORPUSCULAR HGB CONC 31.1 g/dl (32.0-37.0); MEAN CORPUSCULAR VOLUME 91.1 fl (82.0-101.0); MEAN PLATELET VOLUME 11.9 fl (7.4-10.4); MONOCYTE # 0.2 10^3/ul (0.3-0.9); MONOCYTES % 1.5 % (0.0-11.0); NEUTROPHIL # 12.6 10^3/ul (1.6-7.5); NEUTROPHILS % 92.4 % (39.0-77.0); PLATELET COUNT 184 10^3/UL (140-415); RED BLOOD COUNT 3.95 10^6/ul (4.20-5.40); RED CELL DISTRIBUTION WIDTH 14.2 % (11.5-14.5)
[2019-03-03] MEDS ORDERED: LEVALBUTEROL (NEB) 1.25 MG/0.5 ML AMP HHN (07:00)
[2019-03-03] MEDS: VANCOMYCIN HCL 1.75 GM in SOD CHLORIDE 0.9% 500 ML IVPB (07:01)
[2019-03-03 07:07] LABS: ALANINE AMINOTRANSFERASE 18 IU/L (13-69); ALBUMIN 3.4 g/dl (3.3-4.9); ALBUMIN/GLOBULIN RATIO 1.03; ALKALINE PHOSPHATASE 115 IU/L (42-121); ANION GAP 9 (5-13); ASPARTATE AMINO TRANSFERASE 15 IU/L (15-46); BILIRUBIN,INDIRECT 0.3 mg/dl (0-1.1); BILIRUBIN,TOTAL 0.3 mg/dl (0.2-1.3); BLOOD UREA NITROGEN 16 mg/dl (7-20); CALCIUM 8.7 mg/dl (8.4-10.2); CARBON DIOXIDE 28 mmol/L (21-31); CHLORIDE 103 mmol/L (97-110); CHOL/HDL RATIO 3.2 RATIO; CHOLESTEROL 155 mg/dl (100-200); CREATININE 0.68 mg/dl (0.44-1.00); Estimated GFR > 60 mL/min (>60); HDL CHOLESTEROL 47 mg/dl (33-92); LDL CHOLESTEROL,CALCULATED 80 mg/dl; POTASSIUM 4.3 mmol/L (3.5-5.1); SODIUM 140 mmol/L (135-144); TOTAL PROTEIN 6.7 g/dl (6.1-8.1); TRIGLYCERIDES 141 mg/dl (0-149)
[2019-03-03 07:09] LABS: GLUCOSE 457 mg/dl (70-220)
[2019-03-03 07:35] LABS: HEMOGLOBIN A1C 9.2 % (0-5.9)
[2019-03-03] MEDS ORDERED: INSULIN ASPART [NOVOLOG] 3 ML PEN SC ×2 (08:00)
[2019-03-03] MEDS: DULOXETINE 30 MG CAP DR PO ×2 (08:37→20:36)
[2019-03-03] MEDS: CHOLECALCIFEROL 1,000 UNIT TAB PO (08:37)
[2019-03-03] MEDS: ASPIRIN (EC) 81 MG TAB PO (08:38)
[2019-03-03] MEDS: BENAZEPRIL 20 MG TAB PO (08:38)
[2019-03-03] MEDS: SOLIFENACIN 5 MG TAB PO (08:38)
[2019-03-03] MEDS: AMLODIPINE 10 MG TAB PO (08:39)
[2019-03-03] MEDS: INSULIN REGULAR, HUMAN 100 UNIT/1 ML 3ML VIAL IV (08:45)
[2019-03-03] MEDS: ENOXAPARIN 40 MG/0.4 ML SYG SC (08:45)
[2019-03-03] MEDS: CALCIUM/VITAMIN D (500/200) TAB PO (08:59)
[2019-03-03] MEDS ORDERED: INSULIN LISPRO 30 UNIT SQ (09:00)
[2019-03-03 09:36] LABS: ADD UMIC YES; UR ASCORBIC ACID NEGATIVE (NEGATIVE); UR BACTERIA FEW /HPF (NONE SEEN); UR BILIRUBIN (Dip) NEGATIVE (NEGATIVE); UR BLOOD (Dip) 1+ mg/dL (NEGATIVE); UR CLARITY CLEAR (CLEAR); UR COLOR YELLOW (YELLOW); UR GLUCOSE (Dip) 3+ mg/dL (NEGATIVE); UR KETONES (Dip) TRACE mg/dL (NEGATIVE); UR LEUKOCYTE ESTERASE (Dip) NEGATIVE Leu/ul (NEGATIVE); UR NITRITE (Dip) POSITIVE (NEGATIVE); UR RBC 0 /HPF (0-5); UR SPECIFIC GRAVITY (Dip) 1.016 (1.003-1.030); UR TOTAL PROTEIN (Dip) NEGATIVE (NEGATIVE); UR UROBILINOGEN (Dip) NEGATIVE (NEGATIVE); UR WBC 11 /HPF (0-5)
[2019-03-03 11:22] LABS: IRON 20 ug/dl (35-150)
[2019-03-03 11:31] LABS: % IRON SATURATION 8 % SAT (22-52); TOTAL IRON BINDING CAPACITY 259 ug/dl (241-421)
[2019-03-03 11:54] LABS: HEPATITIS B SURFACE ANTIGEN NEGATIVE (NEGATIVE)
[2019-03-03 11:58] LABS: FERRITIN 52.4 ng/ml (11.1-264.0)
[2019-03-03 12:11] LABS: HEPATITIS C VIRAL ANTIBODY NEGATIVE (NEGATIVE)
[2019-03-03] MEDS: FLUTICASONE/VILANTEROL 100-25 INH (12:18)
[2019-03-03] MEDS: metFORMIN 500 MG TAB PO ×2 (12:18→17:53)
[2019-03-03] MEDS: CELECOXIB 200 MG CAP PO ×2 (12:18→20:36)
[2019-03-03] MEDS: TIOTROPIUM 18 MCG CAPSULE INHA DEV INH (12:19)
[2019-03-03] MEDS: INSULIN GLARGINE [LANTus] (100 UNITS/ML) SYG SC ×2 (13:13→20:42)
[2019-03-03] MEDS: PREGABALIN 75 MG CAP PO ×2 (14:58→22:47)
[2019-03-03] MEDS ORDERED: INSULIN GLARGINE [LANTus] (100 UNITS/ML) SYG SC (20:00)
[2019-03-03] MEDS: ATORVASTATIN 20 MG TAB PO (20:35)
[2019-03-03] MEDS: LOSARTAN 50 MG TAB PO (20:35)
[2019-03-03] MEDS: NORTRIPTYLINE 25 MG CAP PO (20:36)
[2019-03-03] MEDS ORDERED: AMITRIPTYLINE 50 MG TAB PO (21:00)
[2019-03-04] MEDS: ACCU-CHEK XX ×2 (00:30→02:00)
[2019-03-04] MEDS: PIPER-TAZO 3.375 GM IV (PMX) 100 ML IVPB ×4 (00:33→17:35)
[2019-03-04] MEDS: ALBUTEROL/IPRATROPIUM (NEB) 3 ML AMP HHN ×5 (00:46→16:49)
[2019-03-04 06:05] LABS: ADD MAN DIFF? NO
[2019-03-04 06:14] LABS: BASOPHILS % 0.1 % (0.0-2.0); HEMATOCRIT 32.7 % (37.0-47.0); HEMOGLOBIN 10.3 g/dl (12.0-16.0); LYMPHOCYTES # 1.8 10^3/ul (0.8-2.9); LYMPHOCYTES % 13.7 % (15.0-51.0); MEAN CORPUSCULAR HEMOGLOBIN 28.5 pg (29.0-33.0); MEAN CORPUSCULAR HGB CONC 31.5 g/dl (32.0-37.0); MEAN CORPUSCULAR VOLUME 90.3 fl (82.0-101.0); MEAN PLATELET VOLUME 11.5 fl (7.4-10.4); MONOCYTE # 1.1 10^3/ul (0.3-0.9); MONOCYTES % 8.9 % (0.0-11.0); NEUTROPHIL # 9.9 10^3/ul (1.6-7.5); NEUTROPHILS % 76.8 % (39.0-77.0); PLATELET COUNT 185 10^3/UL (140-415); RED BLOOD COUNT 3.62 10^6/ul (4.20-5.40); RED CELL DISTRIBUTION WIDTH 14.3 % (11.5-14.5)
[2019-03-04 06:14] LABS: WHITE BLOOD COUNT 12.9 10^3/ul (4.8-10.8)
[2019-03-04 06:54] LABS: ALANINE AMINOTRANSFERASE 19 IU/L (13-69); ALBUMIN/GLOBULIN RATIO 0.96; ALKALINE PHOSPHATASE 88 IU/L (42-121); ANION GAP 6 (5-13); ASPARTATE AMINO TRANSFERASE 11 IU/L (15-46); BILIRUBIN,INDIRECT 0.2 mg/dl (0-1.1); BILIRUBIN,TOTAL 0.2 mg/dl (0.2-1.3); BLOOD UREA NITROGEN 23 mg/dl (7-20); CALCIUM 8.4 mg/dl (8.4-10.2); CARBON DIOXIDE 28 mmol/L (21-31); CHLORIDE 107 mmol/L (97-110); CREATININE 0.71 mg/dl (0.44-1.00); Estimated GFR > 60 mL/min (>60); GLUCOSE 260 mg/dl (70-220); POTASSIUM 3.9 mmol/L (3.5-5.1); SODIUM 141 mmol/L (135-144); TOTAL PROTEIN 6.1 g/dl (6.1-8.1)
[2019-03-04] MEDS: VANCOMYCIN 1.5 GM/NS 250 ML 250 ML IVPB (07:10)
[2019-03-04] MEDS: PREGABALIN 75 MG CAP PO ×3 (07:27→22:33)
[2019-03-04] MEDS: CALCIUM/VITAMIN D (500/200) TAB PO (08:24)
[2019-03-04] MEDS: LOSARTAN 50 MG TAB PO ×2 (08:25→21:00)
[2019-03-04] MEDS: CHOLECALCIFEROL 1,000 UNIT TAB PO (08:25)
[2019-03-04] MEDS: ASPIRIN (EC) 81 MG TAB PO (08:26)
[2019-03-04] MEDS: AMLODIPINE 5 MG TAB PO (08:26)
[2019-03-04] MEDS: SOLIFENACIN 5 MG TAB PO (08:26)
[2019-03-04] MEDS: CELECOXIB 200 MG CAP PO ×3 (08:26→22:33)
[2019-03-04] MEDS: metFORMIN 500 MG TAB PO (08:26)
[2019-03-04] MEDS: DULOXETINE 30 MG CAP DR PO ×3 (08:27→22:32)
[2019-03-04] MEDS: INSULIN GLARGINE [LANTus] (100 UNITS/ML) SYG SC ×2 (08:31→22:38)
[2019-03-04] MEDS: ENOXAPARIN 40 MG/0.4 ML SYG SC (08:31)
[2019-03-04] MEDS: INSULIN ASPART [NOVOLOG] 3 ML PEN SC ×7 (08:31→21:00)
[2019-03-04] MEDS: TIOTROPIUM 18 MCG CAPSULE INHA DEV INH (09:01)
[2019-03-04] MEDS: FLUTICASONE/VILANTEROL 100-25 INH (09:01)
[2019-03-04] MEDS ORDERED: DEXTROSE 50% 50 ML SYRINGE IV (15:00)
[2019-03-04] MEDS ORDERED: GLUCAGON 1 MG INJ IM (15:00)
[2019-03-04] MEDS ORDERED: GLUCOSE GEL 15 GRAM TUBE PO ×2 (15:00)
[2019-03-04] MEDS: MIDAZOLAM 1 MG/ML 2 ML INJ IV (15:17)
[2019-03-04] MEDS: TERBINAFINE 250 MG TAB PO ×2 (15:27→22:33)
[2019-03-04] MEDS: LORAZEPAM 2 MG INJ IV (15:27)
[2019-03-04] MEDS: metFORMIN 850 MG TAB PO (17:34)
[2019-03-04] MEDS: SOD FERRIC GLUC COMPLX 125 MG in SOD CHLORIDE 0.9% 100 ML IVPB (18:29)
[2019-03-04] MEDS: ATORVASTATIN 20 MG TAB PO (21:53)
[2019-03-04] MEDS: DOXAZOSIN 1 MG TAB PO ×2 (21:54→22:34)
[2019-03-04] MEDS: NORTRIPTYLINE 25 MG CAP PO (22:33)
[2019-03-05] MEDS: ALBUTEROL/IPRATROPIUM (NEB) 3 ML AMP HHN ×7 (01:01→20:33)
[2019-03-05] MEDS: PIPER-TAZO 3.375 GM IV (PMX) 100 ML IVPB ×2 (01:09→06:17)
[2019-03-05] MEDS: ACCU-CHEK XX (02:55)
[2019-03-05] MEDS: VANCOMYCIN 1.5 GM/NS 250 ML 250 ML IVPB (05:17)
[2019-03-05 05:49] LABS: ADD MAN DIFF? NO
[2019-03-05 05:57] LABS: WHITE BLOOD COUNT 9.2 10^3/ul (4.8-10.8)
[2019-03-05 05:57] LABS: BASOPHILS % 0.2 % (0.0-2.0); HEMATOCRIT 32.1 % (37.0-47.0); HEMOGLOBIN 10.1 g/dl (12.0-16.0); LYMPHOCYTES % 22.2 % (15.0-51.0); MEAN CORPUSCULAR HEMOGLOBIN 28.7 pg (29.0-33.0); MEAN CORPUSCULAR HGB CONC 31.5 g/dl (32.0-37.0); MEAN CORPUSCULAR VOLUME 91.2 fl (82.0-101.0); MEAN PLATELET VOLUME 11.5 fl (7.4-10.4); MONOCYTE # 0.8 10^3/ul (0.3-0.9); MONOCYTES % 8.8 % (0.0-11.0); NEUTROPHIL # 6.3 10^3/ul (1.6-7.5); NEUTROPHILS % 68.3 % (39.0-77.0); PLATELET COUNT 195 10^3/UL (140-415); RED BLOOD COUNT 3.52 10^6/ul (4.20-5.40); RED CELL DISTRIBUTION WIDTH 14.5 % (11.5-14.5)
[2019-03-05] MEDS: PREGABALIN 75 MG CAP PO ×3 (06:17→21:39)
[2019-03-05 06:35] LABS: ALANINE AMINOTRANSFERASE 22 IU/L (13-69); ALBUMIN 2.8 g/dl (3.3-4.9); ALBUMIN/GLOBULIN RATIO 0.93; ALKALINE PHOSPHATASE 77 IU/L (42-121); ANION GAP 6 (5-13); ASPARTATE AMINO TRANSFERASE 11 IU/L (15-46); BILIRUBIN,INDIRECT 0.3 mg/dl (0-1.1); BILIRUBIN,TOTAL 0.3 mg/dl (0.2-1.3); BLOOD UREA NITROGEN 20 mg/dl (7-20); CALCIUM 8.6 mg/dl (8.4-10.2); CARBON DIOXIDE 29 mmol/L (21-31); CHLORIDE 105 mmol/L (97-110); CREATININE 0.75 mg/dl (0.44-1.00); Estimated GFR > 60 mL/min (>60); GLUCOSE 78 mg/dl (70-220); POTASSIUM 3.9 mmol/L (3.5-5.1); SODIUM 140 mmol/L (135-144); TOTAL PROTEIN 5.8 g/dl (6.1-8.1)
[2019-03-05] MEDS: INSULIN ASPART [NOVOLOG] 3 ML PEN SC ×6 (08:00→21:34)
[2019-03-05] MEDS: ENOXAPARIN 40 MG/0.4 ML SYG SC (08:22)
[2019-03-05] MEDS: INSULIN GLARGINE [LANTus] (100 UNITS/ML) SYG SC (08:23)
[2019-03-05] MEDS: FLUTICASONE/VILANTEROL 100-25 INH (08:43)
[2019-03-05] MEDS: TIOTROPIUM 18 MCG CAPSULE INHA DEV INH (08:43)
[2019-03-05] MEDS: ASPIRIN (EC) 81 MG TAB PO (08:43)
[2019-03-05] MEDS: metFORMIN 850 MG TAB PO ×2 (08:43→17:29)
[2019-03-05] MEDS: AMLODIPINE 5 MG TAB PO (08:44)
[2019-03-05] MEDS: TERBINAFINE 250 MG TAB PO ×2 (08:44→21:39)
[2019-03-05] MEDS: CHOLECALCIFEROL 1,000 UNIT TAB PO (08:45)
[2019-03-05] MEDS: CALCIUM/VITAMIN D (500/200) TAB PO (08:51)
[2019-03-05] MEDS: LOSARTAN 50 MG TAB PO ×2 (08:52→21:23)
[2019-03-05] MEDS ORDERED: LEVOFLOXACIN 750MG/D5W (PMX) 150 ML IVPB (09:30)
[2019-03-05] MEDS: DEXTROSE 50% 50 ML SYRINGE IV (12:52)
[2019-03-05] MEDS: GLUCOSE GEL 15 GRAM TUBE BUCCAL (13:28)
[2019-03-05] MEDS: SOLIFENACIN 5 MG TAB PO (14:47)
[2019-03-05] MEDS: LEVOFLOXACIN 750MG/D5W (PMX) 150 ML IVPB (14:48)
[2019-03-05] MEDS: SOD FERRIC GLUC COMPLX 125 MG in SOD CHLORIDE 0.9% 100 ML IVPB (14:48)
[2019-03-05] MEDS: HYDROCODONE/APAP (5/325) TAB PO (17:29)
[2019-03-05] MEDS: CELECOXIB 200 MG CAP PO (21:21)
[2019-03-05] MEDS: DULOXETINE 30 MG CAP DR PO (21:21)
[2019-03-05] MEDS: ATORVASTATIN 20 MG TAB PO (21:22)
[2019-03-05] MEDS: NORTRIPTYLINE 25 MG CAP PO (21:23)
[2019-03-06] MEDS: ZOLPIDEM 5 MG TAB PO ×2 (00:19→21:58)
[2019-03-06] MEDS: ALBUTEROL/IPRATROPIUM (NEB) 3 ML AMP HHN ×6 (00:37→20:28)
[2019-03-06] MEDS: ACCU-CHEK XX (02:31)
[2019-03-06] MEDS: PREGABALIN 75 MG CAP PO ×3 (05:38→21:17)
[2019-03-06 05:47] LABS: ADD MAN DIFF? NO
[2019-03-06 06:04] LABS: WHITE BLOOD COUNT 9.3 10^3/ul (4.8-10.8)
[2019-03-06 06:04] LABS: BASOPHILS % 0.3 % (0.0-2.0); HEMATOCRIT 34.8 % (37.0-47.0); HEMOGLOBIN 10.6 g/dl (12.0-16.0); LYMPHOCYTES # 2.1 10^3/ul (0.8-2.9); MEAN CORPUSCULAR HEMOGLOBIN 27.8 pg (29.0-33.0); MEAN CORPUSCULAR HGB CONC 30.5 g/dl (32.0-37.0); MEAN CORPUSCULAR VOLUME 91.3 fl (82.0-101.0); MEAN PLATELET VOLUME 11.3 fl (7.4-10.4); MONOCYTE # 0.8 10^3/ul (0.3-0.9); MONOCYTES % 9.1 % (0.0-11.0); NEUTROPHIL # 6.2 10^3/ul (1.6-7.5); NEUTROPHILS % 66.8 % (39.0-77.0); PLATELET COUNT 200 10^3/UL (140-415); RED BLOOD COUNT 3.81 10^6/ul (4.20-5.40); RED CELL DISTRIBUTION WIDTH 14.5 % (11.5-14.5)
[2019-03-06 06:23] LABS: ALANINE AMINOTRANSFERASE 18 IU/L (13-69); ALBUMIN 2.9 g/dl (3.3-4.9); ALBUMIN/GLOBULIN RATIO 0.93; ALKALINE PHOSPHATASE 73 IU/L (42-121); ANION GAP 4 (5-13); ASPARTATE AMINO TRANSFERASE 17 IU/L (15-46); BILIRUBIN,INDIRECT 0.3 mg/dl (0-1.1); BILIRUBIN,TOTAL 0.3 mg/dl (0.2-1.3); BLOOD UREA NITROGEN 15 mg/dl (7-20); CALCIUM 8.8 mg/dl (8.4-10.2); CARBON DIOXIDE 32 mmol/L (21-31); CHLORIDE 104 mmol/L (97-110); CREATININE 0.77 mg/dl (0.44-1.00); Estimated GFR > 60 mL/min (>60); GLUCOSE 64 mg/dl (70-220); POTASSIUM 3.9 mmol/L (3.5-5.1); SODIUM 140 mmol/L (135-144)
[2019-03-06] MEDS: INSULIN ASPART [NOVOLOG] 3 ML PEN SC ×7 (07:30→21:00)
[2019-03-06] MEDS: LEVOFLOXACIN 750MG/D5W (PMX) 150 ML IVPB (10:42)
[2019-03-06] MEDS: DULOXETINE 30 MG CAP DR PO ×2 (10:44→21:17)
[2019-03-06] MEDS: ASPIRIN (EC) 81 MG TAB PO (10:44)
[2019-03-06] MEDS: TERBINAFINE 250 MG TAB PO ×2 (10:45→21:17)
[2019-03-06] MEDS: metFORMIN 850 MG TAB PO ×2 (10:46→17:40)
[2019-03-06] MEDS: CHOLECALCIFEROL 1,000 UNIT TAB PO (10:46)
[2019-03-06] MEDS: CELECOXIB 200 MG CAP PO ×2 (10:46→21:17)
[2019-03-06] MEDS: AMLODIPINE 5 MG TAB PO (10:47)
[2019-03-06] MEDS: CALCIUM/VITAMIN D (500/200) TAB PO (10:47)
[2019-03-06] MEDS: LOSARTAN 50 MG TAB PO ×2 (10:48→21:18)
[2019-03-06] MEDS: TIOTROPIUM 18 MCG CAPSULE INHA DEV INH (10:48)
[2019-03-06] MEDS: SOLIFENACIN 5 MG TAB PO (10:48)
[2019-03-06] MEDS: FLUTICASONE/VILANTEROL 100-25 INH (10:50)
[2019-03-06] MEDS: ENOXAPARIN 40 MG/0.4 ML SYG SC (11:03)
[2019-03-06] MEDS: INSULIN GLARGINE [LANTus] (100 UNITS/ML) SYG SC ×2 (11:04→11:13)
[2019-03-06] MEDS: HYDROCODONE/APAP (5/325) TAB PO ×2 (11:18→16:10)
[2019-03-06] MEDS: ASCORBIC ACID 500 MG TAB PO (12:35)
[2019-03-06] MEDS: ZINC SULFATE 220 MG CAP PO (12:35)
[2019-03-06] MEDS: MULTIVITAMINS THERAPEUTIC TAB PO (12:35)
[2019-03-06] MEDS: SOD FERRIC GLUC COMPLX 125 MG in SOD CHLORIDE 0.9% 100 ML IVPB (14:36)
[2019-03-06] MEDS: NORTRIPTYLINE 25 MG CAP PO (21:16)
[2019-03-06] MEDS: ATORVASTATIN 20 MG TAB PO (21:17)
[2019-03-06] MEDS: DOXAZOSIN 1 MG TAB PO (21:17)
[2019-03-07] MEDS: ALBUTEROL/IPRATROPIUM (NEB) 3 ML AMP HHN ×6 (01:25→20:16)
[2019-03-07] MEDS: ACCU-CHEK XX (02:22)
[2019-03-07] MEDS: PREGABALIN 75 MG CAP PO ×3 (06:26→21:03)
[2019-03-07] MEDS: SOLIFENACIN 5 MG TAB PO (09:46)
[2019-03-07] MEDS: CHOLECALCIFEROL 1,000 UNIT TAB PO (09:47)
[2019-03-07] MEDS: AMLODIPINE 5 MG TAB PO (09:48)
[2019-03-07] MEDS: COLLAGENASE 5 GM (UD JAR) TOP (09:48)
[2019-03-07] MEDS: ASPIRIN (EC) 81 MG TAB PO (09:48)
[2019-03-07] MEDS: TERBINAFINE 250 MG TAB PO ×2 (09:48→21:03)
[2019-03-07] MEDS: LOSARTAN 50 MG TAB PO ×2 (09:48→21:03)
[2019-03-07] MEDS: ASCORBIC ACID 500 MG TAB PO (09:49)
[2019-03-07] MEDS: CELECOXIB 200 MG CAP PO ×2 (09:49→21:04)
[2019-03-07] MEDS: metFORMIN 850 MG TAB PO ×2 (09:49→19:30)
[2019-03-07] MEDS: MULTIVITAMINS THERAPEUTIC TAB PO (09:49)
[2019-03-07] MEDS: DULOXETINE 30 MG CAP DR PO ×2 (09:50→21:03)
[2019-03-07] MEDS: LEVOFLOXACIN 750MG/D5W (PMX) 150 ML IVPB (09:53)
[2019-03-07] MEDS: DAKINS 0.0125%(1/40) 473 ML SOLUTION TP (09:54)
[2019-03-07] MEDS: FLUTICASONE/VILANTEROL 100-25 INH (09:54)
[2019-03-07] MEDS: TIOTROPIUM 18 MCG CAPSULE INHA DEV INH (09:54)
[2019-03-07] MEDS: CALCIUM/VITAMIN D (500/200) TAB PO (09:55)
[2019-03-07] MEDS: ZINC SULFATE 220 MG CAP PO (09:55)
[2019-03-07] MEDS: INSULIN ASPART [NOVOLOG] 3 ML PEN SC ×7 (10:20→21:58)
[2019-03-07] MEDS: ENOXAPARIN 40 MG/0.4 ML SYG SC (10:21)
[2019-03-07] MEDS: INSULIN GLARGINE [LANTus] (100 UNITS/ML) SYG SC (10:21)
[2019-03-07] MEDS: HYDROCODONE/APAP (5/325) TAB PO ×2 (10:58→16:25)
[2019-03-07] MEDS: SOD FERRIC GLUC COMPLX 125 MG in SOD CHLORIDE 0.9% 100 ML IVPB (14:44)
[2019-03-07] MEDS: ZOLPIDEM 5 MG TAB PO ×2 (21:02→22:38)
[2019-03-07] MEDS: NORTRIPTYLINE 25 MG CAP PO (21:04)
[2019-03-07] MEDS: ATORVASTATIN 20 MG TAB PO (21:04)
[2019-03-07] MEDS: DOXAZOSIN 1 MG TAB PO (21:04)
[2019-03-08] MEDS: ALBUTEROL/IPRATROPIUM (NEB) 3 ML AMP HHN ×5 (00:15→17:00)
[2019-03-08] MEDS: ACCU-CHEK XX (02:54)
[2019-03-08] MEDS: PREGABALIN 75 MG CAP PO ×2 (06:29→14:28)
[2019-03-08] MEDS: metFORMIN 850 MG TAB PO (08:14)
[2019-03-08] MEDS: INSULIN ASPART [NOVOLOG] 3 ML PEN SC ×4 (08:20→12:02)
[2019-03-08] MEDS: DAKINS 0.0125%(1/40) 473 ML SOLUTION TP (08:59)
[2019-03-08] MEDS: COLLAGENASE 5 GM (UD JAR) TOP (09:00)
[2019-03-08] MEDS: ZINC SULFATE 220 MG CAP PO (09:00)
[2019-03-08] MEDS: FLUTICASONE/VILANTEROL 100-25 INH (09:00)
[2019-03-08] MEDS: TERBINAFINE 250 MG TAB PO (09:00)
[2019-03-08] MEDS: CELECOXIB 200 MG CAP PO (09:00)
[2019-03-08] MEDS: ASCORBIC ACID 500 MG TAB PO (09:00)
[2019-03-08] MEDS: DULOXETINE 30 MG CAP DR PO (09:00)
[2019-03-08] MEDS: MULTIVITAMINS THERAPEUTIC TAB PO (09:00)
[2019-03-08] MEDS: TIOTROPIUM 18 MCG CAPSULE INHA DEV INH (09:00)
[2019-03-08] MEDS: CHOLECALCIFEROL 1,000 UNIT TAB PO (09:01)
[2019-03-08] MEDS: SOLIFENACIN 5 MG TAB PO (09:01)
[2019-03-08] MEDS: CALCIUM/VITAMIN D (500/200) TAB PO (09:01)
[2019-03-08] MEDS: ASPIRIN (EC) 81 MG TAB PO (09:01)
[2019-03-08] MEDS: LOSARTAN 50 MG TAB PO (09:01)
[2019-03-08] MEDS: AMLODIPINE 5 MG TAB PO (09:02)
[2019-03-08] MEDS: INSULIN GLARGINE [LANTus] (100 UNITS/ML) SYG SC (09:06)
[2019-03-08] MEDS: ENOXAPARIN 40 MG/0.4 ML SYG SC (09:06)
[2019-03-08] MEDS: LEVOFLOXACIN 750MG/D5W (PMX) 150 ML IVPB (09:08)
[2019-03-08] MEDS: HYDROCODONE/APAP (5/325) TAB PO (12:34)
== END 2019-03-08 17:30 | disposition home health service (06) | DRG 871 ==
LOC: E/R 18:23 → 6WM 19:36
PROC: 5A09357 Assistance with Respiratory Ventilation, Less than 24 Consecutive Hours, Continuous Positive Airway Pressure (ICD-10-PCS; principal; 2019-03-02)
DX: A41.51 Sepsis due to Escherichia coli [E. coli] (principal); J96.01 Acute respiratory failure with hypoxia; Z68.41 Body mass index [BMI] 40.0-44.9, adult; E66.2 Morbid (severe) obesity with alveolar hypoventilation; N39.0 Urinary tract infection, site not specified; E87.2 Acidosis; R65.20 Severe sepsis without septic shock; E11.621 Type 2 diabetes mellitus with foot ulcer; E11.65 Type 2 diabetes mellitus with hyperglycemia; I10 Essential (primary) hypertension; D50.9 Iron deficiency anemia, unspecified; B35.1 Tinea unguium; M51.16 Intervertebral disc disorders with radiculopathy, lumbar region; L97.529 Non-pressure chronic ulcer of other part of left foot with unspecified severity; B96.20 Unspecified Escherichia coli [E. coli] as the cause of diseases classified elsewhere; E11.610 Type 2 diabetes mellitus with diabetic neuropathic arthropathy; E11.51 Type 2 diabetes mellitus with diabetic peripheral angiopathy without gangrene; I73.9 Peripheral vascular disease, unspecified; Z99.3 Dependence on wheelchair; E78.5 Hyperlipidemia, unspecified; Z79.4 Long term (current) use of insulin
CPT/HCPCS: 36415; 36600; 71045; 71275; 72148; 73610; 73610-RT; 73630; 73630-LT; 73718; 73721; 80053; 80061; 81001; 82306; 82728; 82803; 82962; 83036; 83540; 83605; 83735; 84443; 84484; 85025; 85610; 85730; 86803; 87040-91; 87086; 87340; 93005; 93922; 94640; 94644; 94660; 94664; 96374; 96375; 97110; 97163; 97530; 99285-25